=== PATIENT | female | born 1960 | race African-American/Black ===

== ENCOUNTER 2017-06-29 21:00 | Emergency (ER) | payer OTHER ==
[2017-06-29] MEDS: KETOROLAC 30 MG INJ IM (23:50)
== END 2017-06-30 00:53 | disposition home or self-care (01) ==
LOC: E/R 21:00
DX: J02.9 Acute pharyngitis, unspecified (principal); I10 Essential (primary) hypertension
CPT/HCPCS: 87070; 96372; 99284-25

== ENCOUNTER 2017-10-13 15:02 | Emergency (ER) | payer OTHER ==
[2017-10-13] MEDS: LIDOCAINE 2% VISC 15 ML CUP PO (17:51)
== END 2017-10-13 18:20 | disposition home or self-care (01) ==
LOC: E/R 15:02
DX: I10 Essential (primary) hypertension (principal); J02.9 Acute pharyngitis, unspecified
CPT/HCPCS: 99282; Z7502

== ENCOUNTER 2017-12-22 08:33 | Day surgery (SDC) | payer OTHER ==
[2017-12-22] MEDS ORDERED: PROPOFOL 60 ML (10:17)
== END 2017-12-22 15:04 | disposition home or self-care (01) ==
LOC: GIL 08:33
DX: Z12.11 Encounter for screening for malignant neoplasm of colon (principal); K29.50 Unspecified chronic gastritis without bleeding; D12.2 Benign neoplasm of ascending colon; K64.4 Residual hemorrhoidal skin tags; I10 Essential (primary) hypertension
CPT/HCPCS: 43239; 88305; 88312